=== PATIENT | male | born 2000 | race Caucasian/White ===

== ENCOUNTER 2019-01-11 02:26 | Emergency (ER) | payer OTHER ==
[2019-01-11] MEDS ORDERED: IBUPROFEN 600 MG TABLET PO ONE (03:39)
--- NOTE | 2019-01-11 03:39 | RADIOLOGY REPORT (SQ) ---
EXAM DESCRIPTION: XR FOOT 3 OR MORE VIEWS COMPLETED DATE/TME: 01/11/2019 00:00 CLINICAL HISTORY: 18 years, Male, pain, edema COMPARISON: None. FINDINGS: 3 views of the right foot. No acute fracture or dislocation. Normal osseous mineralization. The tarsals and metatarsals are appropriately aligned. IMPRESSION: 1. No acute fracture or dislocation. copyright 2010 [employer]- All Rights Reserved
--- NOTE | 2019-01-11 04:02 | ER Document Report ---
HPI - HPI Patient complains to provider of: right foot pain Time Seen by Provider: 01/11/19 03:39 Pain Level: 4 Context: Patient is a 18-year-old male presents to the emergency department for pain in his right foot. Patient states prior to arrival to the emergency department he actually dropped the toolbox from his truck on his right dorsal foot. States immediately had pain and presents to the emergency room. Patient voices his tetanus is up-to-date. Patient's denying any medical problems, denies any daily medications, denies any allergies. - REPRODUCTIVE Reproductive: DENIES: : Past Medical History - General Information source: Patient - Social History Smoking Status: Former Smoker Family History: Reviewed & Not Pertinent Patient has suicidal ideation: No Patient has homicidal ideation: No Vertical Provider Document - CONSTITUTIONAL Agree With Documented VS: Yes Notes: GENERAL: Alert, interacts well. No acute distress. HEAD: Normocephalic, atraumatic. EYES: Pupils equal, round, and reactive to light. Extraocular movements intact. ENT: Oral mucosa moist, tongue midline. NECK: Full range of motion. Supple. Trachea midline. LUNGS: Clear to auscultation bilaterally, no wheezes, rales, or rhonchi. No respiratory distress. HEART: Regular rate and rhythm. No murmur ABDOMEN: Soft, non-tender. Non-distended. Bowel sounds present in all 4 quadrants. EXTREMITIES: Moves all 4 extremities spontaneously. normal radial and dorsalis pedis pulses bilaterally. No cyanosis. 8cm x5cm area of Erythema, ecchymosis, swelling noted to the dorsal aspect of the right foot. Overlying superficial abrasion noted. Capillary refill less than 2 seconds distally all 5 toes right lower extremity. BACK: no cervical, thoracic, lumbar midline tenderness. No saddle anesthesia, normal distal neurovascular exam. NEUROLOGICAL: Alert and oriented x3. Normal speech. cranial nerves II through XII grossly intact. PSYCH: Normal affect, normal mood. SKIN: Warm, dry, normal turgor. - INFECTION CONTROL TRAVEL OUTSIDE OF THE [place] IN LAST 30 DAYS: No Course - Re-evaluation Re-evalutation: 01/11/19 04:00 Foot X-Ray 01/11/19 00:00 IMPRESSION: 1. No acute fracture or dislocation. copyright 2010 [employer]- All Rights Reserved Discussed with patient negative x-ray images. Discussed close follow-up with primary care provider, orthopedics for continued evaluation. Wound cleaned, dressed, Robel wrap applied for support. Patient is requesting crutches at this time. Patient stable for discharge. - Vital Signs Vital signs: Temp Pulse Resp BP Pulse Ox 99.0 F 68 18 133/92 H 100 01/11/19 02:35 01/11/19 02:35 01/11/19 02:35 01/11/19 02:35 01/11/19 02:35 Discharge - Discharge Clinical Impression: Abrasion, Hematoma Right foot injury Qualifiers: Encounter type: initial encounter Qualified Code(s): S99.921A - Unspecified injury of right foot, initial encounter Condition: Stable Disposition: HOME, SELF-CARE Instructions: Abrasions ([facility]), Hematoma ([facility]) Additional Instructions: As we discussed you have been seen and treated in the emergency department for an injury to your right foot. Please make sure you keep the wound clean and dry. Please also make sure you apply ice 20 minutes on, 20 minutes off. Take [id number] Tylenol or Motrin for generalized pain. As we discussed should you continue with pain you should have a repeat x-rays. Sometimes based on swelling initial x-rays do not show underlying fractures. Please follow-up with phone numbers provided, return to the emergency room for any concerns. Forms: Return to Work Referrals: KAMILA GIVENS MD [ACTIVE PROVISIONAL STAFF] - Follow up as needed
[2019-01-11 04:21] VITALS: BP 128/86
== END 2019-01-11 04:21 | disposition home or self-care (01) ==
LOC: ER 02:26
DX: S99.921A Unspecified injury of right foot, initial encounter (principal); M79.671 Pain in right foot; W20.8XXA Other cause of strike by thrown, projected or falling object, initial encounter